=== PATIENT | female | born 1965 | race Caucasian/White ===

== ENCOUNTER 2018-02-08 21:01 | Inpatient (IN) | END 2018-02-11 19:34 | disposition home or self-care (01) | DRG 871 ==

== ENCOUNTER 2019-02-20 13:15 | Day surgery (SDC) | payer OTHER ==
[2019-02-20] VITALS (11 sets, daily range): BP systolic 112–119; BP diastolic 61–76; PULSE 76–80; RESP 12–19
[~2019-02-20] VITALS: Ht 165.1 cm; Wt 44.3 kg
[~2019-02-20 13:15] MED LIST: CALC667C PO; INSU100I12 SQ; LANT3I SC
--- NOTE | 2019-02-20 16:19 | PREAC ---
Date/Time of Note Date/Time of Note DATE: 02/20/19 TIME: 16:18 Anesthesia Eval and Record Evaluation Time Pre-Procedure Interview DATE: 02/20/19 TIME: 16:18 Age 53 Sex female NPO: 8 hrs Preoperative diagnosis ANEMIA Planned procedure EGD AND COLONOSCOPY Past Medical History Past Medical History: Includes Cardio: HTN Endo: Diabetes Neuro: Peripheral neuropathy Renal: ESRD on dialysis Hepatic: Alcohol abuse, Cirrhosis Heme: Anemia Surgery & Anesthesia Issues No known issue Meds Anticoagulation: No Beta Yordy within 24 hr: No Reason Beta Yordy not given: Pt. not on B-Yordy Reported Medications Insulin Lispro (Humalog Kwikpen U-100) 100 Unit/1 Ml Insuln.pen, 0 SQ SS, EA 02/08/18 Insulin Glargine* (Lantus*) 100 Unit/Ml Soln, 10 UNIT SC QHS, #1 VIAL 02/08/18 Calcium Acetate* (Calcium Acetate*) Unknown Strength Capsule, PO WITH MEALS, #60 CAP 02/08/18 Meds reviewed: Yes Allergies Coded Allergies: ceftriaxone (Verified Allergy, Severe, ANAPHYLAXIS, 02/15/19) Allergies Reviewed: Yes Labs/Studies Labs Reviewed: Reviewed by anesthesiologist test: N/A Studies: ECG, CXR Pre-procedure Exam Airway: Adequate mouth opening, Adequate thyromental dist Mallampati: Mallampati II Teeth: Normal Lung: Normal Heart: Normal ASA Physical Status ASA physical status: 3 Emergency: None Planned Anesthetic General/MAC: MAC Planned Pain Management Parenteral pain med Pre-operative Attestations Prior to commencing anesthesia and surgery, the patient was re-evaluated, there was verification of: *The patient's identity *The results of appropriate recent lab work and preoperative vital signs *The above evaluation not changing prior to induction *Anesthetic plan, risk benefits, alternative and complications discussed with patient/family; questions answered; patient/family understands, accepts and wishes to proceed. XIAO COX Feb 20, 2019 16:19
[2019-02-20] MEDS ORDERED: LIDOCAINE 2% (SDV) 5 ML INJ ONE (16:28)
[2019-02-20] MEDS ORDERED: PROPOFOL 60 ML ONE (16:28)
--- NOTE | 2019-02-20 17:20 | PAC ---
Date/Time of Note Date/Time of Note DATE: 02/20/19 TIME: 17:20 Post-Anesthesia Notes Post-Anesthesia Note Last documented vital signs 118/67 78 99% SAT 98.1 TEMP Activity: WNL Respiratory function: WNL Cardiovascular function: WNL Mental status: Baseline Pain reasonably controlled: Yes Hydration appropriate: Yes Nausea/Vomiting absent: Yes XIAO COX Feb 20, 2019 17:20
[2019-02-20] MEDS ORDERED: LABETALOL HCL 20MG INJ IV PRN (17:30)
[2019-02-20] MEDS ORDERED: ONDANSETRON 4 MG INJ IV PRN (17:30)
[2019-02-20] MEDS ORDERED: MIDAZOLAM 1 MG/ML 2 ML INJ IV PRN (17:30)
[2019-02-20] MEDS ORDERED: OXYCODONE/ACETAMINOPHEN (5/325) TAB PO PRN (17:30)
[2019-02-20] MEDS ORDERED: FENTAnyl 50 MCG/ML VIAL IV PRN ×2 (17:30)
[2019-02-20] MEDS ORDERED: EPHEDrine 25 MG/5 ML SYG IV PRN (17:30)
[2019-02-20] MEDS ORDERED: hydrALAzine 20 MG INJ IV PRN (17:30)
[2019-02-20] MEDS ORDERED: DIPHENHYDRAMINE 50 MG INJ IV PRN (17:30)
[2019-02-20] MEDS ORDERED: METOCLOPRAMIDE 10 MG INJ IV PRN (17:30)
[2019-02-20] MEDS ORDERED: ALBUTEROL 0.083% (NEB) 2.5 MG/3 ML AMP HHN PRN (17:30)
[2019-02-20] MEDS ORDERED: MEPERIDINE 25 MG INJ IV PRN (17:30)
== END 2019-02-20 18:25 ==
LOC: GIL 13:15
PROVIDERS: ATTEND Internal Medicine Gastroenterology
DX: K64.9 Unspecified hemorrhoids (principal); K29.70 Gastritis, unspecified, without bleeding; I12.0 Hypertensive chronic kidney disease with stage 5 chronic kidney disease or end stage renal disease; N18.6 End stage renal disease; Z99.2 Dependence on renal dialysis; E11.9 Type 2 diabetes mellitus without complications
CPT/HCPCS: 88305

== ENCOUNTER 2019-05-02 17:33 | Emergency (ER) | payer BC, OTHER ==
[~2019-05-02] VITALS: Ht 165.1 cm; Wt 52.3 kg
[~2019-05-02 17:33] MED LIST changes: +ALBU8.5H8 INH; +AMOX1TAB10 ORAL; +BACITUD TOP; +ERGO500013 ORAL; +GABA300C16 ORAL; +INSU100I33 SUBCUTANE; +INSU100V30 SUBCUTANE; +METH500T8 ORAL; +MIDO5TAB4 ORAL; +OXYC-481 ORAL; +PANT40TA4 ORAL
[2019-05-02 17:51] VITALS: Ht 165.1 cm; Wt 52.3 kg
[2019-05-02] MEDS ORDERED: OXYCODONE/ACETAMINOPHEN (5/325) TAB PO ONE (18:00)
[2019-05-02 18:06] VITALS: BP 164/87; PULSE 63; RESP 16
== END 2019-05-02 18:11 | disposition home or self-care (01) ==
LOC: E/R 17:33
DX: I12.0 Hypertensive chronic kidney disease with stage 5 chronic kidney disease or end stage renal disease (principal); E11.22 Type 2 diabetes mellitus with diabetic chronic kidney disease; N18.6 End stage renal disease; Z79.4 Long term (current) use of insulin; Z99.2 Dependence on renal dialysis
CPT/HCPCS: 99283